=== PATIENT | female | born 1995 | race Two or more races ===

== ENCOUNTER 2020-09-17 19:18 | Emergency (ER) | payer OTHER ==
[~2020-09-17] VITALS: Ht 152.4 cm; Wt 56.7 kg
[2020-09-17] MEDS ORDERED: PROTONIX40 MG PO (23:37)
[2020-09-17] MEDS ORDERED: CARAFATE1 GM PO (23:37)
[2020-09-17] MEDS ORDERED: PEPCID AC20 MG PO (23:37)
== END 2020-09-17 23:55 | disposition home or self-care (01) ==
LOC: ER 19:18
DX: B34.9 Viral infection, unspecified (principal); R10.13 Epigastric pain; Z20.822 Contact with and (suspected) exposure to COVID-19

== ENCOUNTER 2024-06-23 09:37 | Emergency (ER) | payer OTHER ==
[~2024-06-23] VITALS: Ht 154.9 cm; Wt 59.9 kg
[~2024-06-23 09:37] MED LIST: CARAFATE1 GM PO; PEPCID AC20 MG PO; PROTONIX40 MG PO
[2024-06-23] MEDS ORDERED: AZITHROMYCIN 500 MG TABLET PO ONE (10:15)
[2024-06-23] MEDS ORDERED: GUAIFENESIN/DEXTROMETHORPHAN 10ML BLIST.PACK PO ONE (10:15)
[2024-06-23] MEDS ORDERED: DEXAMETHASONE SODIUM PHOSPHATE 4 MG/ML VIAL IM ONE (10:15)
[2024-06-23 11:04] LABS: HEMATOCRIT 39.9 % (36.0-45.00); MEAN CELL VOLUME 94.9 fL (80.00-100.00); MEAN CORPUSCULAR HEMOGLOBIN 33.2 pg (27.00-32.0); PLATELET COUNT 255 K/uL (150-450); RED CELL DISTRIBUTION WIDTH 12.1 % (11.5-14.5)
[2024-06-23] MEDS ORDERED: IPRAT-ALBUT 0.5-3 ML IH (11:23)
[2024-06-23] MEDS ORDERED: ZITHROMAX500 MG PO (11:23)
[2024-06-23] MEDS ORDERED: TUSNEL LIQUID178 ML PO (11:23)
== END 2024-06-23 11:43 | disposition home or self-care (01) ==
LOC: ER 09:37
PROVIDERS: General Practice
DX: J06.9 Acute upper respiratory infection, unspecified (principal); R05.9 Cough, unspecified; Z20.822 Contact with and (suspected) exposure to COVID-19